=== PATIENT | male | born 2000 | race Caucasian/White ===

== ENCOUNTER 2018-07-28 21:00 | Emergency (ER) | payer BC ==
[~2018-07-28] VITALS: Ht 172.7 cm; Wt 68.0 kg
[2018-07-28] MEDS ORDERED: ALLEGRA-D 24 H1 EACH PO (21:09)
== END 2018-07-28 22:02 | disposition home or self-care (01) ==
LOC: ED 21:00
DX: S43.101A Unspecified dislocation of right acromioclavicular joint, initial encounter (principal); Z79.899 Other long term (current) drug therapy; W01.0XXA Fall on same level from slipping, tripping and stumbling without subsequent striking against object, initial encounter; Y93.66 Activity, soccer
CPT/HCPCS: 73000; 99283